=== PATIENT | female | born 1990 ===

== ENCOUNTER 2024-12-19 06:22 | Day surgery (SDC) | payer BC, SELFPAY | END 2024-12-19 15:53 | disposition home or self-care (01) | LOC: GI 06:22 | PROVIDERS: ATTENDING PHYSICIAN Internal Medicine Gastroenterology | DX: Z12.11 Encounter for screening for malignant neoplasm of colon (principal); Z86.0100 Personal history of colon polyps, unspecified; K64.8 Other hemorrhoids | CPT/HCPCS: G0105 ==